=== PATIENT | male | born 1940 | race Caucasian/White ===

== ENCOUNTER 2017-07-16 00:23 | Emergency (ER) | payer MEDICARE ==
[~2017-07-16] VITALS: Ht 180.3 cm; Wt 85.7 kg
[~2017-07-16 00:23] MED LIST: ALLO300 PO; ASPI81EC PO; ATOR20 PO; CIALIS PO; DIGO.25 PO; FINA5 PO; HYDCHL25 PO; METO100ER PO; METO25ER PO; METO50ER PO; RAMI5 PO; Ramipril10 MG PO; SILD50TA PO; SIMV20 PO; WARF2.5 PO; WARF3 PO; WARF6 PO
== END 2017-07-16 05:40 | disposition home or self-care (01) ==
LOC: ER 00:23
DX: S81.811A Laceration without foreign body, right lower leg, initial encounter (principal); S70.311A Abrasion, right thigh, initial encounter; S60.511A Abrasion of right hand, initial encounter; W01.198A Fall on same level from slipping, tripping and stumbling with subsequent striking against other object, initial encounter; Z79.899 Other long term (current) drug therapy; Z79.82 Long term (current) use of aspirin; Z79.01 Long term (current) use of anticoagulants; Z86.73 Personal history of transient ischemic attack (TIA), and cerebral infarction without residual deficits; Z87.891 Personal history of nicotine dependence
CPT/HCPCS: 99282

== ENCOUNTER → 2018-02-26 | Outpatient (CLI) | payer MEDICARE ==
[2018-02-26 14:58] LABS: Creatinine, Urine Random 45.9 mg/dL (27.00-270.00)
== END | disposition home or self-care (01) ==
LOC: LAB SHORT 14:31 → LAB 14:31
PROVIDERS: Internal Medicine
DX: N17.9 Acute kidney failure, unspecified (principal)
CPT/HCPCS: 82570; 84156

== ENCOUNTER 2019-02-20 08:30 | Day surgery (SDC) | payer MEDICARE ==
[~2019-02-20] VITALS: Ht 175.3 cm; Wt 93.6 kg
[~2019-02-20 08:30] MED LIST changes: +Amiodarone HCl200 MG PO; +FURO40 PO; +LOSA25 PO; +TADA10TA PO; +THERA-D2000 UNIT PO
[2019-02-20] MEDS ORDERED: METO25ER PO (09:23)
[2019-02-20 09:34] LABS: International Normalized Ratio 3.36; Prothrombin Time Results 31.9 Sec (9.7-11.5)
--- NOTE | 2019-02-20 14:15 | NUR ---
DISCHARGE PT REMAINED A&OX3 AND DENIED ANY PAIN DURING RECOVERY. L UPPER CHEST SITE REMAINS [id number] DRESSING IN PLACE. IV DC'D WITH TIP IN TACT. PT AMBULATED TO RESTROOM WITH STEADY GAIT AND DRESSED SELF WITH LITTLE HELP. DISCHARGE PAPERWORK GONE OVER WITH PT AND SPOUSE. PT AND SPOUSE VERBALY STATED THE UNDERSTANDING OF THE DISCHARGE EDUCATION AND DENIED ANY QUESTIONS AT THIS TIME. DRESSING CHANGE ITEMS GIVEN TO PT- PER DR. LAYNE. PT WHEELED OUT BY THIS NURSE.
== END 2019-02-20 14:00 | disposition home or self-care (01) ==
LOC: MHTC 08:30
PROVIDERS: Internal Medicine Cardiovascular Disease
DX: Z45.02 Encounter for adjustment and management of automatic implantable cardiac defibrillator (principal); I42.8 Other cardiomyopathies; E78.5 Hyperlipidemia, unspecified; I12.9 Hypertensive chronic kidney disease with stage 1 through stage 4 chronic kidney disease, or unspecified chronic kidney disease; N18.9 Chronic kidney disease, unspecified; I48.91 Unspecified atrial fibrillation; Z87.891 Personal history of nicotine dependence; Z79.82 Long term (current) use of aspirin; Z79.01 Long term (current) use of anticoagulants; Z79.899 Other long term (current) drug therapy; Z95.2 Presence of prosthetic heart valve; Z86.73 Personal history of transient ischemic attack (TIA), and cerebral infarction without residual deficits
CPT/HCPCS: 33263; 85610; 99152; 99153; C1721; J0690; J1644; J2250; J3010; J7040

== ENCOUNTER 2020-04-13 20:49 | Emergency (ER) | payer MEDICARE ==
[~2020-04-13] VITALS: Ht 180.3 cm; Wt 93.4 kg
== END 2020-04-13 22:52 | disposition home or self-care (01) ==
LOC: ER 20:49
DX: D68.32 Hemorrhagic disorder due to extrinsic circulating anticoagulants (principal); K91.840 Postprocedural hemorrhage of a digestive system organ or structure following a digestive system procedure; T45.515A Adverse effect of anticoagulants, initial encounter; Z79.82 Long term (current) use of aspirin; Z79.899 Other long term (current) drug therapy; Z79.01 Long term (current) use of anticoagulants; Z86.73 Personal history of transient ischemic attack (TIA), and cerebral infarction without residual deficits; Z95.0 Presence of cardiac pacemaker; Z87.891 Personal history of nicotine dependence; Y83.9 Surgical procedure, unspecified as the cause of abnormal reaction of the patient, or of later complication, without mention of misadventure at the time of the procedure
CPT/HCPCS: 99282

== ENCOUNTER 2020-06-19 14:00 | Emergency (ER) | payer MEDICARE ==
[~2020-06-19] VITALS: Ht 180.3 cm; Wt 90.3 kg
[2020-06-19 14:34] LABS: BASOPHILS ABSOLUTE AUTO 0.05 K/mm3 (0.00-0.23); BASOPHILS PERCENT AUTO 0 % (0-2); EOSINOPHILS ABSOLUTE AUTO 0.14 K/mm3 (0.00-0.68); EOSINOPHILS PERCENT AUTO 1 % (0-6); Hematocrit 35.4 % (37.0-53.0); Hemoglobin 11.4 g/dL (13.5-17.5); IMMATURE GRAN ABSOLUTE AUTO 0.04 K/mm3 (0.00-0.10); IMMATURE GRAN PERCENT AUTO 0 % (0-1); LYMPHOCYTES PERCENT AUTO 7 % (21-46); MONOCYTES ABSOLUTE AUTO 1.04 K/mm3 (0.16-1.47); MONOCYTES PERCENT AUTO 9 % (4-13); Mean Corpuscular HGB Conc 32.2 g/dL (31.5-36.5); Mean Corpuscular Volume 84 fL (80-100); Mean Platelet Volume 10.4 fL (9.1-12.4); NEUTROPHILS ABSOLUTE AUTO 9.53 K/mm3 (1.96-9.15); NEUTROPHILS PERCENT AUTO 82 % (41-73); Platelet Count 215 K/mm3 (150-400); RDW Coefficient Variation 15.2 % (11.7-14.2); RDW Standard Deviation 46.5 fL (35.1-46.3); Red Blood Cell Count 4.22 M/mm3 (4.30-5.90)
[2020-06-19 14:53] LABS: International Normalized Ratio 2.5; Prothrombin Time Results 25.6 Sec (9.7-11.5)
[2020-06-19 14:59] LABS: Albumin, Blood 3.9 g/dL (3.4-5.0); Albumin/Globulin Ratio 1.1 (0.8-1.8); Bun/Creatinine Ratio 14.7 (12.0-20.0); Calcium, Blood 8.9 mg/dL (8.5-10.1); Creatinine, Blood 1.56 mg/dL (0.60-1.20); Globulin, Blood 3.6 g/dL (2.2-4.0); Potassium, Blood 4.2 mmol/L (3.5-5.5); Total Protein, Blood 7.5 g/dL (6.4-8.2)
[2020-06-19 16:36] LABS: Source, Urine Clean Catch
[2020-06-19 16:58] LABS: Appearance, Urine Clear (Clear); Bilirubin, Urine Neg (Neg); Blood, Urine 1+ (Neg); Color, Urine Amber (P-Yellow); Glucose Qualitative, Urine Neg (Neg); Ketones, Urine Neg (Neg); Leukocyte Esterase, Urine 1+ (Neg); Nitrite, Urine Neg (Neg); Protein, Urine 2+ (Neg); Specific Gravity, Urine 1.015 (1.003-1.022); Urobilinogen, Urine NORM (Normal)
[2020-06-19 17:10] LABS: Amorphous Light (0-Heavy); Bacteria Mod /hpf; Squamous Epithelial Cells Few /hpf (Few); Transitional Epithelial Cells Rare /hpf (0-Rare)
[2020-06-19] MEDS ORDERED: AMOCLA875 PO (18:23)
== END 2020-06-19 18:27 | disposition home or self-care (01) ==
LOC: ER 14:00
PROVIDERS: Physician Assistant
DX: N39.0 Urinary tract infection, site not specified (principal); Z79.01 Long term (current) use of anticoagulants; Z79.899 Other long term (current) drug therapy; Z79.82 Long term (current) use of aspirin
CPT/HCPCS: 36415; 71045; 80053; 81001; 84484; 85025; 85610; 87086; 93005; 93010; 99285-25; A9270; A9270-GY

== ENCOUNTER 2020-07-08 15:33 | Day surgery (SDC) | payer MEDICARE ==
[~2020-07-08 15:33] MED LIST changes: +AMOCLA875 PO
== END 2020-07-08 16:40 | disposition home or self-care (01) ==
LOC: ATC 15:33
DX: I38 Endocarditis, valve unspecified (principal); I42.8 Other cardiomyopathies; I49.01 Ventricular fibrillation; I48.91 Unspecified atrial fibrillation; E78.5 Hyperlipidemia, unspecified; I12.9 Hypertensive chronic kidney disease with stage 1 through stage 4 chronic kidney disease, or unspecified chronic kidney disease; N18.30 Chronic kidney disease, stage 3 unspecified; Z87.891 Personal history of nicotine dependence; Z86.73 Personal history of transient ischemic attack (TIA), and cerebral infarction without residual deficits; Z79.01 Long term (current) use of anticoagulants; Z95.2 Presence of prosthetic heart valve; Z95.810 Presence of automatic (implantable) cardiac defibrillator
CPT/HCPCS: 96372; J1650

== ENCOUNTER 2020-07-09 07:08 | Day surgery (SDC) | payer MEDICARE | END 2020-07-09 11:42 | disposition home or self-care (01) | LOC: ATC 07:08 | DX: I42.8 Other cardiomyopathies (principal); I38 Endocarditis, valve unspecified; I48.91 Unspecified atrial fibrillation; E78.00 Pure hypercholesterolemia, unspecified; I12.9 Hypertensive chronic kidney disease with stage 1 through stage 4 chronic kidney disease, or unspecified chronic kidney disease; N18.30 Chronic kidney disease, stage 3 unspecified; N40.0 Benign prostatic hyperplasia without lower urinary tract symptoms; Z95.2 Presence of prosthetic heart valve; Z86.73 Personal history of transient ischemic attack (TIA), and cerebral infarction without residual deficits; Z95.810 Presence of automatic (implantable) cardiac defibrillator; Z79.82 Long term (current) use of aspirin; Z79.01 Long term (current) use of anticoagulants; Z87.891 Personal history of nicotine dependence | CPT/HCPCS: 96372; J1650 ==

== ENCOUNTER 2020-07-10 03:14 | Day surgery (SDC) | payer MEDICARE | END 2020-07-10 14:51 | disposition home or self-care (01) | LOC: ATC 03:14 | DX: I38 Endocarditis, valve unspecified (principal); E78.5 Hyperlipidemia, unspecified; I12.9 Hypertensive chronic kidney disease with stage 1 through stage 4 chronic kidney disease, or unspecified chronic kidney disease; N18.30 Chronic kidney disease, stage 3 unspecified; Z95.2 Presence of prosthetic heart valve; Z87.891 Personal history of nicotine dependence; Z79.01 Long term (current) use of anticoagulants | CPT/HCPCS: 96372; J1650 ==

== ENCOUNTER 2020-07-11 10:51 | Day surgery (SDC) | payer MEDICARE ==
--- NOTE | 2020-07-11 11:57 | NUR ---
FINGERSTICK INR 2.8 TODAY. PT AND STATE NO COUMADIN SINCE 07/08/20. PT ADMITS TAKING A BABY ASPIRIN DAILY, LAST DOSE THIS MORNING. CALLED [facility], SPOKE WITH NURSE MENDES WHO STATES DR. LAYNE WANTS TO HOLD LOVENOX TODAY, PT TO HAVE DENTAL PROCEDURE TOMORROW. PT AND HIS UPDATED. PT'S STATES THEY WILL HAVE INR CHECKED TOMORROW BEFORE HIS ORAL SURGERY. SENT A FAX TO DR. LAYNE'S OFFICE TO CLARIFY WHEN PT IS TO RESTART COUMADIN AND WHEN TO RESTART LOVENOX INJECTIONS TO BRIDGE PT BACK ONTO COUMADIN AFTER HIS PROCEDURE.
== END 2020-07-11 11:36 | disposition home or self-care (01) ==
LOC: ATC 10:51
DX: I38 Endocarditis, valve unspecified (principal); I48.91 Unspecified atrial fibrillation; E78.5 Hyperlipidemia, unspecified; I10 Essential (primary) hypertension; I42.9 Cardiomyopathy, unspecified; I49.01 Ventricular fibrillation; Z95.810 Presence of automatic (implantable) cardiac defibrillator; Z79.82 Long term (current) use of aspirin; Z87.891 Personal history of nicotine dependence
CPT/HCPCS: 36416; 85610; 99211

== ENCOUNTER 2020-07-12 10:37 | Day surgery (SDC) | payer MEDICARE | END 2020-07-12 14:50 | disposition home or self-care (01) | LOC: ATC 10:37 | DX: I38 Endocarditis, valve unspecified (principal); I42.8 Other cardiomyopathies; I49.01 Ventricular fibrillation; Z95.810 Presence of automatic (implantable) cardiac defibrillator; I48.91 Unspecified atrial fibrillation; E78.5 Hyperlipidemia, unspecified; I12.9 Hypertensive chronic kidney disease with stage 1 through stage 4 chronic kidney disease, or unspecified chronic kidney disease; N18.30 Chronic kidney disease, stage 3 unspecified | CPT/HCPCS: 36416; 85610; 96372; J1650 ==

== ENCOUNTER 2020-07-12 23:37 | Emergency (ER) | payer MEDICARE ==
[~2020-07-12] VITALS: Ht 180.3 cm; Wt 91.6 kg
[2020-07-13 07:06] LABS: Prothrombin Time Results 20.3 Sec (9.7-11.5)
[2020-07-13 07:07] LABS: International Normalized Ratio 1.95
== END 2020-07-13 05:47 | disposition home or self-care (01) ==
LOC: ER 23:37
PROVIDERS: Emergency Medicine
DX: K91.840 Postprocedural hemorrhage of a digestive system organ or structure following a digestive system procedure (principal); Y83.8 Other surgical procedures as the cause of abnormal reaction of the patient, or of later complication, without mention of misadventure at the time of the procedure
CPT/HCPCS: 85610; 99283; A9270

== ENCOUNTER 2020-07-13 00:13 | Day surgery (SDC) | payer MEDICARE | END 2020-07-13 15:04 | disposition home or self-care (01) | LOC: ATC 00:13 | DX: I38 Endocarditis, valve unspecified (principal); I42.9 Cardiomyopathy, unspecified; I49.01 Ventricular fibrillation; I10 Essential (primary) hypertension; E78.5 Hyperlipidemia, unspecified; Z79.899 Other long term (current) drug therapy; Z95.810 Presence of automatic (implantable) cardiac defibrillator | CPT/HCPCS: 36416; 85610; 96372; J1650 ==

== ENCOUNTER 2020-07-14 00:38 | Day surgery (SDC) | payer MEDICARE | END 2020-07-14 13:50 | disposition home or self-care (01) | LOC: ATC 00:38 | DX: I38 Endocarditis, valve unspecified (principal); I42.8 Other cardiomyopathies; E78.5 Hyperlipidemia, unspecified; I48.91 Unspecified atrial fibrillation; I49.01 Ventricular fibrillation; I12.9 Hypertensive chronic kidney disease with stage 1 through stage 4 chronic kidney disease, or unspecified chronic kidney disease; N18.30 Chronic kidney disease, stage 3 unspecified; N40.0 Benign prostatic hyperplasia without lower urinary tract symptoms; Z95.810 Presence of automatic (implantable) cardiac defibrillator; Z95.2 Presence of prosthetic heart valve; Z79.01 Long term (current) use of anticoagulants; Z87.891 Personal history of nicotine dependence | CPT/HCPCS: 36416; 85610 ==

== ENCOUNTER 2021-04-09 13:10 | Emergency (ER) | payer MEDICARE ==
[~2021-04-09] VITALS: Ht 182.9 cm; Wt 90.7 kg
[2021-04-09 13:53] LABS: BASOPHILS ABSOLUTE AUTO 0.04 K/mm3 (0.00-0.23); BASOPHILS PERCENT AUTO 1 % (0-2); EOSINOPHILS ABSOLUTE AUTO 0.12 K/mm3 (0.00-0.68); EOSINOPHILS PERCENT AUTO 2 % (0-6); Hematocrit 39.2 % (37.0-53.0); Hemoglobin 12.5 g/dL (13.5-17.5); IMMATURE GRAN ABSOLUTE AUTO 0.02 K/mm3 (0.00-0.10); IMMATURE GRAN PERCENT AUTO 0 % (0-1); LYMPHOCYTES ABSOLUTE AUTO 0.68 K/mm3 (0.84-5.20); LYMPHOCYTES PERCENT AUTO 9 % (21-46); MONOCYTES ABSOLUTE AUTO 0.74 K/mm3 (0.16-1.47); MONOCYTES PERCENT AUTO 10 % (4-13); Mean Corpuscular HGB 29.6 pg (26.0-34.0); Mean Corpuscular HGB Conc 31.9 g/dL (31.5-36.5); Mean Corpuscular Volume 93 fL (80-100); Mean Platelet Volume 10.9 fL (9.1-12.4); NEUTROPHILS ABSOLUTE AUTO 6.14 K/mm3 (1.96-9.15); NEUTROPHILS PERCENT AUTO 79 % (41-73); Platelet Count 181 K/mm3 (150-400); RDW Coefficient Variation 17.2 % (11.7-14.2); RDW Standard Deviation 58.7 fL (35.1-46.3); Red Blood Cell Count 4.22 M/mm3 (4.30-5.90); White Blood Cell Count 7.74 K/mm3 (4.00-11.30)
[2021-04-09 14:12] LABS: Albumin, Blood 3.7 g/dL (3.4-5.0); Albumin/Globulin Ratio 1.2 (0.8-1.8); Bun/Creatinine Ratio 17.6 (12.0-20.0); Calcium, Blood 8.4 mg/dL (8.5-10.1); Creatinine, Blood 1.48 mg/dL (0.60-1.20); Globulin, Blood 3.2 g/dL (2.2-4.0); Potassium, Blood 4.3 mmol/L (3.5-5.5); Total Protein, Blood 6.9 g/dL (6.4-8.2)
[2021-04-09 14:14] LABS: Prothrombin Time Results 49.9 Sec (9.7-11.5)
[2021-04-09 14:23] LABS: International Normalized Ratio 5.3
== END 2021-04-09 15:30 | disposition home or self-care (01) ==
LOC: ER 13:10
PROVIDERS: Physician Assistant
DX: R06.00 Dyspnea, unspecified (principal); E78.5 Hyperlipidemia, unspecified; I48.91 Unspecified atrial fibrillation; I10 Essential (primary) hypertension; Z79.899 Other long term (current) drug therapy; Z79.82 Long term (current) use of aspirin; Z86.73 Personal history of transient ischemic attack (TIA), and cerebral infarction without residual deficits; Z87.891 Personal history of nicotine dependence; Z79.01 Long term (current) use of anticoagulants
CPT/HCPCS: 80053; 83880; 84484; 85025; 85610; 85730; 93005; 93010; 99283-25; A9270

== ENCOUNTER → 2021-04-09 | Outpatient (CLI) | payer MEDICARE ==
[2021-04-09 11:07] LABS: BASOPHILS ABSOLUTE AUTO 0.03 K/mm3 (0.00-0.23); BASOPHILS PERCENT AUTO 0 % (0-2); EOSINOPHILS ABSOLUTE AUTO 0.11 K/mm3 (0.00-0.68); EOSINOPHILS PERCENT AUTO 1 % (0-6); Hemoglobin 12.7 g/dL (13.5-17.5); IMMATURE GRAN ABSOLUTE AUTO 0.03 K/mm3 (0.00-0.10); IMMATURE GRAN PERCENT AUTO 0 % (0-1); LYMPHOCYTES ABSOLUTE AUTO 0.61 K/mm3 (0.84-5.20); LYMPHOCYTES PERCENT AUTO 8 % (21-46); MONOCYTES ABSOLUTE AUTO 0.81 K/mm3 (0.16-1.47); MONOCYTES PERCENT AUTO 11 % (4-13); Mean Corpuscular HGB 30.3 pg (26.0-34.0); Mean Corpuscular HGB Conc 32.6 g/dL (31.5-36.5); Mean Corpuscular Volume 93 fL (80-100); Mean Platelet Volume 10.7 fL (9.1-12.4); NEUTROPHILS ABSOLUTE AUTO 6.14 K/mm3 (1.96-9.15); NEUTROPHILS PERCENT AUTO 79 % (41-73); Platelet Count 162 K/mm3 (150-400); RDW Coefficient Variation 17.2 % (11.7-14.2); RDW Standard Deviation 58.7 fL (35.1-46.3); Red Blood Cell Count 4.19 M/mm3 (4.30-5.90); White Blood Cell Count 7.73 K/mm3 (4.00-11.30)
[2021-04-09 12:21] LABS: Prothrombin Time Results 52.4 Sec (9.7-11.5)
[2021-04-09 12:44] LABS: International Normalized Ratio 5.58
[2021-04-09 12:58] LABS: Albumin/Globulin Ratio 1.5 (0.8-1.8); Bun/Creatinine Ratio 17.3 (12.0-20.0); Calcium, Blood 8.4 mg/dL (8.5-10.1); Creatinine, Blood 1.56 mg/dL (0.60-1.20); Globulin, Blood 2.7 g/dL (2.2-4.0); Potassium, Blood 4.2 mmol/L (3.5-5.5); Total Protein, Blood 6.7 g/dL (6.4-8.2)
[2021-04-09 13:01] LABS: Thyroid Stimulating Hormone 5.63 uIU/mL (0.360-4.800)
== END ==
LOC: LAB SHORT 11:00
PROVIDERS: Physician Assistant
DX: I48.91 Unspecified atrial fibrillation (principal); R06.01 Orthopnea; R53.83 Other fatigue
CPT/HCPCS: 80053; 83880; 84443; 84484; 85025; 85610

== ENCOUNTER 2021-10-11 19:36 | Emergency (ER) | payer MEDICARE ==
[~2021-10-11] VITALS: Ht 180.3 cm; Wt 87.5 kg
== END 2021-10-11 21:52 | disposition home or self-care (01) ==
LOC: ER 19:36
DX: S80.11XA Contusion of right lower leg, initial encounter (principal); X58.XXXA Exposure to other specified factors, initial encounter; Z95.2 Presence of prosthetic heart valve; Z95.810 Presence of automatic (implantable) cardiac defibrillator
CPT/HCPCS: 73590; 99283-25